=== PATIENT | male | born 1950 | race Caucasian/White ===

== ENCOUNTER 2016-12-17 14:32 | Emergency (ER) | payer MEDICARE ==
[2016-12-17 16:27] LABS: Hematocrit 45 % (42-52); Hemoglobin 15.6 g/dl (14.0-18.0); Mean Corpuscular HGB Conc 34 g/dl (31-36); Mean Corpuscular Hemoglobin 33 pg (27-31); Mean Corpuscular Volume 95 fL (80-94); Mean Platelet Volume 8 um3 (7.4-10.4); Red Blood Count 4.77 10^6/ul (4.0-5.4); Red Cell Distribution Width 14 % (10.5-15); White Blood Count 7.1 10^3/ul (3.5-10.8)
[2016-12-17] MEDS ORDERED: Thiamine IV* 100 MG, Folic Acid IV* 1 MG, Multiple Vitamin IV ADULT* 10 ML in NS 0.9% 1... IV ONE (16:27)
[2016-12-17] MEDS ORDERED: chlordiazePOXIDE CAP* 25 MG PO ONE ×2 (16:28→17:46)
[2016-12-17] MEDS ORDERED: LORazepam INJ* 2 MG/ML 1 ML VIAL IV ONE (16:29)
[2016-12-17 16:40] LABS: Urine Bacteria Absent (Absent); Urine Bilirubin Negative (Negative); Urine Glucose Negative (Negative); Urine Nitrite Negative (Negative)
[2016-12-17 16:49] LABS: Benzodiazepine Urine Screen None Detected (None Detect)
[2016-12-17 16:58] LABS: ALT 173 U/L (7-52); AST 81 U/L (13-39); Albumin 4.6 g/dL (3.2-5.2); Alkaline Phosphatase 63 U/L (34-104); Anion Gap 11 mmol/L (2-11); BUN/Creatinine Ratio 20.2 (8-20); Blood Urea Nitrogen 20 mg/dL (6-24); CO2 Carbon Dioxide 27 mmol/L (22-32); Calcium 10.3 mg/dL (8.6-10.3); Chloride 92 mmol/L (101-111); EGFR African American 97.6 (>60); EGFR Non-African American 75.9 (>60); Globulin 3.7 g/dL (2-4); Glucose 99 mg/dL (70-100); Magnesium 1.8 mg/dL (1.9-2.7); Potassium 3.5 mmol/L (3.5-5.0); Sodium 130 mmol/L (133-145); Total Protein 8.3 g/dL (6.4-8.9)
[2016-12-17 17:03] LABS: Acetaminophen < 15 mcg/mL; Alcohol < 10 mg/dL (<10); Salicylate < 2.50 mg/dL (<30)
[2016-12-17 17:10] LABS: TSH (Thyroid Stimulating Horm) 2.02 mcIU/mL (0.34-5.60)
[2016-12-17] MEDS ORDERED: Magnesium Sulfate 2 GM IV* 2 GM/50 ML BAG IVPB ONE (17:20)
--- NOTE | 2016-12-17 17:48 | ED ---
Rod Walters Benjamin, scribed for Lyle Corcoran MD on 12/17/16 at 1607 . Substance Abuse/Use - HPI Summary HPI Summary: 66yo male comes to ED for ETOH detox request. Pt has hx of alcoholism, and pt has been cutting his amount of alcohol consumption in the past month. Pt has cut down significantly and report not drinking any on Saturday and Saturday, but on Saturday pt was having withdrawal symptoms, including shaking and AMS. Pts withdrawal symptoms resolved after taking 6 packs of beer spread out throughout the entire day yesterday. Pt did not drink any today. Pt is here to get his sz like withdrawal episode yesterday checked out and to get resources for detox. - History Of Current Complaint Chief Complaint: EDDetoxRequest Stated Complaint: ALCOHOL DETOX SYMPTOMS Time Seen by Provider: 12/17/16 14:55 Hx Obtained From: Patient, Family/Percussion Tuner - son Ingestion History: Type/Name Of Drug - alcohol Overdose Characteristics: Oral Timing Of Abuse: Recent Cessation For A Period Of - gradual decrease for the past month Severity Initially: Moderate Severity Currently: None Aggravating Factor(s): Other - ETOH cessation Alleviating Factor(s): Other - ETOH Associated Signs And Symptoms: Tremulous, Seizure - Allergies/Home Medications Allergies/Adverse Reactions: Allergies Allergy/AdvReac Type Severity Reaction Status Date / Time No Known Allergies Allergy Verified 12/17/16 16:33 PMH/Surg Hx/FS Hx/Imm Hx Psychiatric History: Reports: Hx Substance Abuse - ETOH Infectious Disease History: No Infectious Disease History: Denies: Traveled Outside the [place] in Last 30 Days - Family History Known Family History: Negative: Cardiac Disease, Hypertension - Social History Occupation: Unemployed Lives: With Family Alcohol Use: Daily Alcohol Amount: '"6pack" Substance Use Type: Reports: None Smoking Status (MU): Former Smoker Review of Systems Constitutional: Negative Eyes: Negative ENT: Negative Cardiovascular: Negative Respiratory: Negative Gastrointestinal: Negative Genitourinary: Negative Musculoskeletal: Negative Skin: Negative Neurological: Negative Psychological: Normal All Other Systems Reviewed And Are Negative: Yes Physical Exam Triage Information Reviewed: Yes Vital Signs On Initial Exam: Initial Vitals Temp Pulse Resp BP Pulse Ox 98.2 F 127 16 131/90 95 12/17/16 14:35 12/17/16 14:35 12/17/16 14:35 12/17/16 14:35 12/17/16 14:35 Vital Signs Reviewed: Yes Appearance: Positive: Well-Appearing, No Pain Distress, Well-Nourished Skin: Positive: Warm, Skin Color Reflects Adequate Perfusion, Dry Head/Face: Positive: Normal Head/Face Inspection Eyes: Positive: Normal ENT: Positive: Normal ENT inspection Neck: Positive: Supple, Nontender Respiratory/Lung Sounds: Positive: Clear to Auscultation, Breath Sounds Present Cardiovascular: Positive: Tachycardia Abdomen Description: Positive: Nontender, No Organomegaly, Soft Bowel Sounds: Positive: Present Musculoskeletal: Positive: Strength/ROM Intact Neurological: Positive: Sensory/Motor Intact, Alert, Oriented to Person Place, Time, CN Intact II-III Psychiatric: Positive: Affect/Mood Appropriate Diagnostics - Vital Signs Vital Signs Temp Pulse Resp BP Pulse Ox 12/17/16 15:01 98.2 F 127 20 131/90 98 12/17/16 14:35 98.2 F 127 16 131/90 95 - Laboratory Lab Results: Lab Results 12/17/16 12/17/16 12/17/16 Range/Units 16:15 16:15 16:20 WBC 7.1 (3.5-10.8) 10^3/ul RBC 4.77 (4.0-5.4) 10^6/ul Hgb 15.6 (14.0-18.0) g/dl Hct 45 (42-52) % MCV 95 H (80-94) fL MCH 33 H (27-31) pg MCHC 34 (31-36) g/dl RDW 14 (10.5-15) % Plt Count 122 L (150-450) 10^3/ul MPV 8 (7.4-10.4) um3 Neut % (Auto) 71.9 (38-83) % Lymph % (Auto) 15.1 L (25-47) % [place] % (Auto) 11.7 H (1-9) % Eos % (Auto) 0.6 (0-6) % Baso % (Auto) 0.7 (0-2) % Absolute Neuts (auto) 5.1 (1.5-7.7) 10^3/ul Absolute Lymphs (auto) 1.1 (1.0-4.8) 10^3/ul Absolute Monos (auto) 0.8 (0-0.8) 10^3/ul Absolute Eos (auto) 0 (0-0.6) 10^3/ul Absolute Basos (auto) 0.1 (0-0.2) 10^3/ul Absolute Nucleated RBC 0.01 10^3/ul Nucleated RBC % 0.2 Sodium 130 L (133-145) mmol/L Potassium 3.5 (3.5-5.0) mmol/L Chloride 92 L (101-111) mmol/L Carbon Dioxide 27 (22-32) mmol/L Anion Gap 11 (2-11) mmol/L BUN 20 (6-24) mg/dL Creatinine 0.99 (0.67-1.17) mg/dL Est GFR ( Amer) 97.6 (>60) Est GFR (Non-Af Amer) 75.9 (>60) BUN/Creatinine Ratio 20.2 H (8-20) Glucose 99 (70-100) mg/dL Calcium 10.3 (8.6-10.3) mg/dL Magnesium 1.8 L (1.9-2.7) mg/dL Total Bilirubin 1.10 H (0.2-1.0) mg/dL AST 81 H (13-39) U/L ALT 173 H (7-52) U/L Alkaline Phosphatase 63 (34-104) U/L Total Protein 8.3 (6.4-8.9) g/dL Albumin 4.6 (3.2-5.2) g/dL Globulin 3.7 (2-4) g/dL Albumin/Globulin Ratio 1.2 (1-3) TSH 2.02 (0.34-5.60) mcIU/mL Urine Color Archana Urine Appearance Cloudy Urine pH 5.0 (5-9) Ur Specific [place] 1.021 (1.010-1.030) Urine Protein 2+(100 mg/dl) H (Negative) Urine Ketones 1+ H (Negative) Urine Blood 2+ H (Negative) Urine Nitrate Negative (Negative) Urine Bilirubin Negative (Negative) Urine Urobilinogen Negative (Negative) Ur Leukocyte Esterase 2+ H (Negative) Urine WBC (Auto) 3+(>20/hpf) H (Absent) Urine RBC (Auto) 1+(3-5/hpf) H (Absent) Urine Bacteria Absent (Absent) Hyaline Casts Present H (Absent) Urine Glucose Negative (Negative) Salicylates < 2.50 (<30) mg/dL Urine Opiates Screen (None Detect) Acetaminophen < 15 mcg/mL Ur Barbiturates Screen (None Detect) Ur Phencyclidine Scrn (None Detect) Ur Amphetamines Screen (None Detect) U Benzodiazepines Scrn (None Detect) Urine Cocaine Screen (None Detect) U Cannabinoids Screen (None Detect) Serum Alcohol < 10 (<10) mg/dL 12/17/16 Range/Units 16:20 WBC (3.5-10.8) 10^3/ul RBC (4.0-5.4) 10^6/ul Hgb (14.0-18.0) g/dl Hct (42-52) % MCV (80-94) fL MCH (27-31) pg MCHC (31-36) g/dl RDW (10.5-15) % Plt Count (150-450) 10^3/ul MPV (7.4-10.4) um3 Neut % (Auto) (38-83) % Lymph % (Auto) (25-47) % [place] % (Auto) (1-9) % Eos % (Auto) (0-6) % Baso % (Auto) (0-2) % Absolute Neuts (auto) (1.5-7.7) 10^3/ul Absolute Lymphs (auto) (1.0-4.8) 10^3/ul Absolute Monos (auto) (0-0.8) 10^3/ul Absolute Eos (auto) (0-0.6) 10^3/ul Absolute Basos (auto) (0-0.2) 10^3/ul Absolute Nucleated RBC 10^3/ul Nucleated RBC % Sodium (133-145) mmol/L Potassium (3.5-5.0) mmol/L Chloride (101-111) mmol/L Carbon Dioxide (22-32) mmol/L Anion Gap (2-11) mmol/L BUN (6-24) mg/dL Creatinine (0.67-1.17) mg/dL Est GFR ( Amer) (>60) Est GFR (Non-Af Amer) (>60) BUN/Creatinine Ratio (8-20) Glucose (70-100) mg/dL Calcium (8.6-10.3) mg/dL Magnesium (1.9-2.7) mg/dL Total Bilirubin (0.2-1.0) mg/dL AST (13-39) U/L ALT (7-52) U/L Alkaline Phosphatase (34-104) U/L Total Protein (6.4-8.9) g/dL Albumin (3.2-5.2) g/dL Globulin (2-4) g/dL Albumin/Globulin Ratio (1-3) TSH (0.34-5.60) mcIU/mL Urine Color Urine Appearance Urine pH (5-9) Ur Specific [place] (1.010-1.030) Urine Protein (Negative) Urine Ketones (Negative) Urine Blood (Negative) Urine Nitrate (Negative) Urine Bilirubin (Negative) Urine Urobilinogen (Negative) Ur Leukocyte Esterase (Negative) Urine WBC (Auto) (Absent) Urine RBC (Auto) (Absent) Urine Bacteria (Absent) Hyaline Casts (Absent) Urine Glucose (Negative) Salicylates (<30) mg/dL Urine Opiates Screen None detected (None Detect) Acetaminophen mcg/mL Ur Barbiturates Screen None detected (None Detect) Ur Phencyclidine Scrn None detected (None Detect) Ur Amphetamines Screen None detected (None Detect) U Benzodiazepines Scrn None detected (None Detect) Urine Cocaine Screen None detected (None Detect) U Cannabinoids Screen None detected (None Detect) Serum Alcohol (<10) mg/dL Result Diagrams: 12/17/16 16:15 12/17/16 16:15 Lab Statement: Any lab studies that have been ordered have been reviewed, and results considered in the medical decision making process. Re-Evaluation - Re-Evaluation First Eval Re-Evaluation Time: 17:26 Comment: reviewed lab results with the pt Course/Dx - Course Course Of Treatment: NO CRITICAL CARE TIME. DISCHARGE HOME STABLE. - Diagnoses Provider Diagnoses: Alcohol withdrawal Discharge - Discharge Plan Condition: Stable Disposition: HOME Prescriptions: chlordiazePOXIDE CAP* [Librium CAP*] 25 mg PO SEE INSTRUCTIONS PRN #15 cap MDD 8 PRN Reason: Agitation/Anxiety Patient Education Materials: Alcohol Withdrawal (ED) Referrals: Larissa Parish MD [Primary Care Provider] - [facility] [Outside] [facility] [Outside] [facility] [Outside] Additional Instructions: FOLLOW UP WITH YOUR DOCTOR. RETURN TO THE EMERGENCY DEPARTMENT FOR ANY WORSENING OF YOUR CONDITION OR QUESTIONS OR CONCERNS. The documentation as recorded by the Rod franklin Benjamin accurately reflects the service I personally performed and the decisions made by , Lyle Corcoran MD.
[2016-12-17 20:07] VITALS: BP 151/103
--- NOTE | 2016-12-19 09:56 | PN ---
Progress Note - Progress Note Date of Service: 12/19/16 Note: Urine grew Strep Group B 10-25,000. likely containment so will not treat at this point.
== END 2016-12-17 20:07 | disposition home or self-care (01) ==
LOC: ED 14:32
DX: F10.239 Alcohol dependence with withdrawal, unspecified (principal); Z87.891 Personal history of nicotine dependence
CPT/HCPCS: 36415; 80053; 80307; 80320; 80329; 81003; 81015; 83735; 84443; 85025; 87077; 87086; 96365; 96375; 99283; A9270-GY; G0480; J2060

== ENCOUNTER 2016-12-21 13:44 | Emergency (ER) | payer MEDICARE ==
[2016-12-21 13:58] VITALS: BP 146/76
--- NOTE | 2016-12-21 14:48 | ED ---
HPI Chest Pain - HPI Summary HPI Summary: 66M presents for chest xray for [facility]. He had pos ppd in 1957 and 1967. He never had follow up. they will only admit him with an xray. He is going there for ETOH detox. He denies any cough, SOB, or chest pain, weight loss, or night sweats. - History of Current Complaint Chief Complaint: EDGeneral Time Seen by Provider: 12/21/16 14:03 Pain Intensity: 0 - Allergy/Home Medications Allergies/Adverse Reactions: Allergies Allergy/AdvReac Type Severity Reaction Status Date / Time No Known Allergies Allergy Verified 12/21/16 14:22 PMH/Surg Hx/FS Hx/Imm Hx Endocrine/Hematology History: Denies: Hx Anticoagulant Therapy Cardiovascular History: Reports: Hx Hypertension Psychiatric History: Reports: Hx Substance Abuse - ETOH Infectious Disease History: No Infectious Disease History: Denies: Traveled Outside the [place] in Last 30 Days - Family History Known Family History: Negative: Cardiac Disease, Hypertension - Social History Alcohol Use: Daily Alcohol Amount: '"6pack" Substance Use Type: Reports: None Smoking Status (MU): Former Smoker Review of Systems Negative: Fever Negative: Chest Pain Negative: Shortness Of Breath Negative: Abdominal Pain All Other Systems Reviewed And Are Negative: Yes Physical Exam Triage Information Reviewed: Yes Vital Signs On Initial Exam: Initial Vitals Temp Pulse Resp BP Pulse Ox 96.8 F 69 16 146/76 98 12/21/16 13:55 12/21/16 13:55 12/21/16 13:55 12/21/16 13:55 12/21/16 13:55 Vital Signs Reviewed: Yes Appearance: Positive: Well-Appearing Skin: Positive: Warm, Dry Head/Face: Positive: Normal Head/Face Inspection Eyes: Positive: Normal, Conjunctiva Clear Respiratory/Lung Sounds: Positive: Clear to Auscultation, Breath Sounds Present Cardiovascular: Positive: Normal, RRR Abdomen Description: Positive: Nontender, Soft Bowel Sounds: Positive: Present Diagnostics - Vital Signs Vital Signs Temp Pulse Resp BP Pulse Ox 12/21/16 14:22 96.8 F 69 16 146/76 98 12/21/16 13:55 96.8 F 69 16 146/76 98 - Laboratory Lab Statement: Any lab studies that have been ordered have been reviewed, and results considered in the medical decision making process. - Radiology chest Xray Interpretation: No Acute Changes - IMPRESSION: Negative for acute thoracic inflammatory disease or stigmata of prior granulomatous disease. Radiology Interpretation Completed By: Radiologist Chest Pain Course/Dx - Course Course Of Treatment: 66M presents for chest xray for [facility]. He had pos ppd in 1957 and 1967. He never had follow up. they will only admit him with an xray. He is going there for ETOH detox. He denies any cough, SOB, or chest pain, weight loss, or night sweats. PE normal. Chest xray normal. patient understands and agrees with plan - Chest Pain Differential Diagnosis/HQI/PQRI: Chest Wall, Lower Respiratory Infection, Other : - TB - Diagnoses Provider Diagnoses: Encounter for medical screening examination Discharge - Discharge Plan Condition: Good Disposition: HOME Referrals: Larissa Parish MD [Primary Care Provider] - Additional Instructions: Follow up with [facility] Return to ED if develop any new or worsening symptoms
--- NOTE | 2016-12-21 14:50 | RAD ---
INDICATION: History of previous positive PPD. COMPARISON: No relevant prior exams available on the [facility] [place] PACS for comparison. TECHNIQUE: Dual energy PA and routine lateral views of the chest were obtained. REPORT: Clear lungs and pleural spaces. The heart, pulmonary vasculature, and mediastinal contours are unremarkable. 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 No suspicious focal osseous lesions evident. IMPRESSION: Negative for acute thoracic inflammatory disease or stigmata of prior granulomatous disease.
== END 2016-12-21 15:17 | disposition home or self-care (01) ==
LOC: ED 13:44
DX: Z00.8 Encounter for other general examination (principal)
CPT/HCPCS: 71020; 99281